=== PATIENT | male | born 1990 | race Caucasian/White ===

== ENCOUNTER 2023-11-01 22:02 | Emergency (ER) | payer MEDICAID, SELFPAY ==
[2023-11-01] VITALS (11 sets, daily range): BP systolic 144–152; BP diastolic 92–97; PULSE 72–80; TEMP 36.6; O2SAT 98–100; BMI 26.9
--- NOTE | 2023-11-01 22:28 | XR_ITS ---
The [address] [address] Patient Name: ALEX HOFFMAN MRN: [id number] date: 1990 Sex: M Assigned Patient Location: ER Current Patient Location: Accession/Order Number: [id number] Exam Date: 11/01/2023 22:45 Report Date: 11/02/2023 01:02 At the request of: GUERA VALE Procedure: XR chest 1V CXR HISTORY: Shortness of breath COMPARISON: None. TECHNIQUE: 1 view chest submitted for review. FINDINGS: Lungs are hyperexpanded with an infrahilar airspace opacity. The cardiac silhouette measures within normal. Pulmonary vascularity is unremarkable. Osseous structures do not demonstrate any acute abnormality. XR/XR chest 1V IMPRESSION: Infrahilar airspace opacity demonstrated. Please correlate for pneumonia versus atelectasis. Electronically authenticated by: HAYDE DUMAS Date: 11/02/2023 01:02
--- NOTE | 2023-11-01 22:28 | ECG_ITS ---
The [facility] Test Date: 2023-11-01 Pat Name: ALEX HOFFMAN Department: Room: - Gender: Male Sonography Technician: : 1990 Requested By: CHARO FRANCISCO Order Number: [id number] Reading MD: ALON TY Measurements Intervals [place] Rate: 76 P: 85 IA: 196 QRS: 88 QRSD: 94 T: 67 QT: 416 QTc: 446 Interpretive Statements 1100 Sinus rhythm [address] depression 9150 abnormal ECG No previous ECG available for comparison Electronically Signed On 11-03-2023 22:37:35 EDT by ALON TY
--- NOTE | 2023-11-01 22:29 | ED.CHESTPAI1 ---
HPI - Chest Pain General Chief Complaint: Chest Pain Stated Complaint: CHEST PAIN Time Seen by Provider: 11/01/23 22:22 History of Present Illness HPI narrative: patient presents complaining of sudden onset of pain substernal chest. Burning pain. Past history of cocaine use. States last used cocaine yesterday. No pleuritic symptoms or shortness of breath. States he was sweaty at home when the pain started. No associated abdominal pain or nausea denies history of heart disease in his family Related Data Home Medications ?Medication ?Instructions ?Recorded ?Confirmed No Known Home Medications 11/01/23 11/01/23 Allergies Allergy/AdvReac Type Severity Reaction Status Date / Time No Known Drug Allergies Allergy Verified 11/01/23 22:23 Review of Systems ROS Status of ROS 10 or more systems reviewed and unremarkable except as noted in history and below Exam Constitutional Vital Signs, click to edit/add: Last Vital Signs Temp 98 F 11/01/23 22:16 Pulse 80 11/01/23 22:16 Resp 20 11/01/23 22:16 BP 144/97 H 11/01/23 22:16 Pulse Ox 100 11/01/23 22:16 O2 Del Method Room Air 11/01/23 22:16 Common normals: oriented x3, no limitations, healthy appearing, alert and well nourished General appearance: in distress HENMT Common normals: normocephalic and head/scalp atraumatic Eye Common normals: EOMs intact bilaterally and conjunctivae normal Respiratory Common normals: normal respiratory effort, no retractions, no use of accessory muscles and clear to auscultation bilaterally Cardio Common normals: regular rate, regular rhythm, S1 normal heart sound and S2 normal heart sound GI Common normals: Normal to inspection, nondistended, normoactive bowel sounds present, soft to palpation and non-tender Extremity Common normals: normal to inspection and full ROM Neuro Common normals: oriented x3, CN's II-XII intact bilaterally, moves all extremities and no focal motor deficits Psych Appearance: grossly normal Course Vital Signs Vital signs: Vital Signs Temperature 98 F 11/01/23 22:16 Pulse Rate 80 11/01/23 22:16 Respiratory Rate 20 11/01/23 22:16 Blood Pressure 144/97 H 11/01/23 22:16 Pulse Oximetry 100 11/01/23 22:16 Oxygen Delivery Method Room Air 11/01/23 22:16 Temperature 98 F 11/01/23 22:16 Pulse Rate 80 11/01/23 22:16 Respiratory Rate 20 11/01/23 22:16 Blood Pressure 144/97 H 11/01/23 22:16 Pulse Oximetry 100 11/01/23 22:16 Oxygen Delivery Method Room Air 11/01/23 22:16 MDM - Chest Pain MDM Narrative Medical decision making narrative: patient presents with acute onset of chest pain and vomiting. chest wall nontender. Pain has improved but not resolved. first troponin neg. d-dimer neg. cxray report not back from radiology. Patient given GI cocktail. Now he wants to go. Informed of the plan for 3 hour follow up troponin for his heart. States he is not going to stay for any further testing and wants to leave now. will have him sign out AMA as he insist on leaving even though the workup is incomplete advised to follow up with his PCP DR Myers Lab Data Labs: Lab Results 11/01/23 11/01/23 Range/Units 22:41 22:49 WBC 17.3 H (4.0-11.0) 10^3/uL RBC 5.07 (4.70-6.10) 10^6/uL Hgb 16.4 (14.0-18.0) g/dL Hct 46.7 (42.0-54.0) % MCV 92.1 (80.0-94.0) fL MCH 32.3 (25.9-34.0) pg MCHC 35.1 (29.9-35.2) g/dL RDW 13.0 (11.0-15.0) % Plt Count 282 (150-450) 10^3/uL MPV 9.3 L (9.5-13.5) fL Neut % (Auto) 82.1 H (43.0-75.0) % Lymph % (Auto) 12.4 L (20.5-60.0) % [place] % (Auto) 4.8 (1.7-12.0) % Eos % (Auto) 0.1 L (0.9-7.0) % Baso % (Auto) 0.3 (0.2-2.0) % Neut # (Auto) 14.2 H (1.4-6.5) 10^3/uL Lymph # (Auto) 2.2 (1.2-3.8) 10^3/uL Providence # (Auto) 0.8 (0.3-0.8) 10^3/uL Eos # (Auto) 0.0 (0.0-0.7) 10^3/uL Baso # (Auto) 0.1 (0.0-0.1) 10^3/uL Abs Immat Gran (auto) 0.06 H (0.00-0.03) 10^3/uL Imm/Tot Granulo (auto) 0.3 (0.0-0.5) % D-Dimer 0.49 (<=0.59) mg/L FEU Sodium 137 (136-145) mmol/L Potassium 3.6 (3.5-5.1) mmol/L Chloride 98 (98-107) mmol/L Carbon Dioxide 21.1 (21.0-32.0) mmol/L Anion Gap 21.5 BUN 12.0 (7.0-18.0) mg/dL Creatinine 1.39 H (0.70-1.30) mg/dL Est GFR ( Amer) >60 (>=60) Est GFR (Non-Af Amer) 58 L (>=60) BUN/Creatinine Ratio 8.6 Glucose 127 H (74-106) mg/dL Calcium 9.7 (8.5-10.1) mg/dL Total Bilirubin 0.5 (0.2-1.0) mg/dL AST 25 (15-37) U/L ALT 37 (16-63) U/L Alkaline Phosphatase 83 (46-116) U/L Troponin I High Sens 65.7 (4.0-76.1) pg/mL Total Protein 8.5 H (6.4-8.2) g/dL Albumin 4.4 (3.4-5.0) g/dL Globulin 4.1 g/dL Albumin/Globulin Ratio 1.1 Lipase 32.0 (16.0-77.0) U/L Discharge Plan Discharge Stand Alone Forms: Portal Instructions Chief Complaint: Chest Pain Clinical Impression: Chest pain Patient Disposition: Left Against Medical Advice Prescriptions / Home Meds: No Action No Known Home Medications Print Language: Polish Referrals: Yoav Myers MD [Primary Care Provider] - 1 week
[2023-11-01] MEDS: ONDANSETRON PF 4 MG/2 ML VIAL IV (22:43)
[2023-11-01 22:46] LABS: Basophils Absolute Auto 0.1 10^3/uL (0.0-0.1); Basophils Percent Auto 0.3 % (0.2-2.0); Eosinophils Percent Auto 0.1 % (0.9-7.0); Hematocrit 46.7 % (42.0-54.0); Hemoglobin 16.4 g/dL (14.0-18.0); Immature Granulocytes Abs Auto 0.06 10^3/uL (0.00-0.03); Immature Granulocytes Pct Auto 0.3 % (0.0-0.5); Lymphocytes Absolute Auto 2.2 10^3/uL (1.2-3.8); Lymphocytes Percent Auto 12.4 % (20.5-60.0); Mean Corpuscular HGB Conc 35.1 g/dL (29.9-35.2); Mean Corpuscular Hemoglobin 32.3 pg (25.9-34.0); Mean Corpuscular Volume 92.1 fL (80.0-94.0); Mean Platelet Volume 9.3 fL (9.5-13.5); Monocytes Absolute Auto 0.8 10^3/uL (0.3-0.8); Monocytes Percent Auto 4.8 % (1.7-12.0); Neutrophils Absolute Auto 14.2 10^3/uL (1.4-6.5); Neutrophils Percent Auto 82.1 % (43.0-75.0); Platelet Count 282 10^3/uL (150-450); Red Blood Count 5.07 10^6/uL (4.70-6.10); White Blood Count 17.3 10^3/uL (4.0-11.0)
[2023-11-01 23:09] LABS: Alanine Aminotransferase 37 U/L (16-63); Albumin Globulin Ratio 1.1; Albumin Level 4.4 g/dL (3.4-5.0); Alkaline Phosphatase 83 U/L (46-116); Anion Gap 21.5; Aspartate Amino Transferase 25 U/L (15-37); BUN Creatinine Ratio 8.6; Bilirubin Total 0.5 mg/dL (0.2-1.0); Calcium 9.7 mg/dL (8.5-10.1); Carbon Dioxide 21.1 mmol/L (21.0-32.0); Chloride 98 mmol/L (98-107); Estimated GFR (African America >60 (>=60); Estimated GFR (Non-African Ame 58 (>=60); Globulin 4.1 g/dL; Glucose 127 mg/dL (74-106); Potassium 3.6 mmol/L (3.5-5.1); Sodium 137 mmol/L (136-145); Total Protein 8.5 g/dL (6.4-8.2); Troponin I High Sensitivity 65.7 pg/mL (4.0-76.1)
[2023-11-01 23:16] LABS: D Dimer 0.49 mg/L FEU (<=0.59)
[2023-11-01] MEDS: lidocaine HCL 15 ML, MAG HYDROX/ALUMINUM HYD/SIMETH 30 ML, HYOSCYAMINE SULFATE 0.25 MG PO (23:32)
== END 2023-11-01 23:43 | disposition left against medical advice (07) ==
PROVIDERS: Emergency Provider Internal Medicine; PCP Family Medicine
DX: R07.9 Chest pain, unspecified (principal); Z53.29 Procedure and treatment not carried out because of patient's decision for other reasons; Z87.898 Personal history of other specified conditions
CPT/HCPCS: 36415; 71045; 80053; 83690; 84484; 85025; 85378; 93005; 96374; 99285; J2405

== ENCOUNTER 2024-08-08 12:20 | Emergency (ER) | payer MEDICAID, SELFPAY ==
--- OUTSIDE RECORDS SUMMARY | 2023-08-22 11:40 | XMS_ITS ---
Author Organization [facility] Serv[facility] es Address [address] [place] [address] Care Team Providers Care Key Bed Installer Name Role Phone Justin Miramontes Primary Care Provider REASON FOR VISIT DENTAL EXAM Encounters Encounter Location Date Provider Diagnosis [address] [place] [address] 08/22/2023 Justin Miramontes Plan Of Treatment No Information Progress Notes * ALEX HOFFMANDOB: 9 (33 yo M)Acc No.[id number]:08/22/2023 Patient: ALEX BRANDT Provider: Deepti Miramontes DDS :1990 A ge:32 Y S ex:Male Date:08/22/2023 Address:[address] [place], [place] [id number] Subjective: * Chief Complaints: * 1 . DENTAL EXAM. * Medical History: Objective: * Vitals: Assessment: Plan: * Treatment: * Images: * Electronic signature of Jamie Miramontes DDS on 08/08/2024 at 12:23 PM EDT Sign off status: Pending * Provider: Deepti Miramontes DDS Date: 08/22/2023 Generated for Debra templeton/Breanne/eTransmitting on: 0 08/08/2024 12:23 PM EDT
--- OUTSIDE RECORDS SUMMARY | 2023-09-11 07:40 | XMS_ITS ---
Author Organization [facility] Serv[facility] es Address [address] [place] [address] Care Team Providers Care Medicare Sales Executive Name Role Phone Justin Miramontes Primary Care Provider [phone] REASON FOR VISIT EXAM Encounters Encounter Location Date Provider Diagnosis [address] [place] [address] 09/11/2023 Justin Miramontes Plan Of Treatment No Information Progress Notes * ALEX HOFFMANDOB: 9 (33 yo M)Acc No.[id number]:09/11/2023 Patient: ALEX BRANDT Provider: Deepti Miramontes DDS :1990 A ge:32 Y S ex:Male Date:09/11/2023 Address:[address] [place], [place] [id number] Subjective: * Chief Complaints: * 1 . EXAM. * Medical History: Objective: * Vitals: Assessment: Plan: * Treatment: * Images: * Electronic signature of Jamie Miramontes DDS on 08/08/2024 at 12:23 PM EDT Sign off status: Pending * Provider: Deepti Miramontes DDS Date: 09/11/2023 Generated for Debra templeton/Breanne/eTransmitting on: 08/08/2024 12:23 PM EDT
--- OUTSIDE RECORDS SUMMARY | 2023-10-02 05:50 | XMS_ITS ---
Author Organization [facility] Servic [facility] Address [address] [place] [address] Care Team Providers Care Stroke Coordinator Name Role Phone Justin Miramontes Primary Care Provider REASON FOR VISIT EXAM Encounters Encounter Location Date Provider Diagnosis [address] [place] [address] 10/02/2023 Justin Miramontes Plan Of Treatment No Information Progress Notes * ALEX HOFFMANDOB: 9 (33 yo M)Acc No.[id number]:10/02/2023 Patient: ALEX BRANDT Provider: Deepti Miramotnes DDS :1990 A ge:33 Y S ex:Male Date:10/02/2023 Address:[address] [place], [place] [id number] Subjective: * Chief Complaints: * 1 . EXAM. * Medical History: Objective: * Vitals: Assessment: Plan: * Treatment: * Images: * Electronic signature of Jamie Miramontes DDS on 08/08/2024 at 12:23 PM EDT Sign off status: Pending * Provider: Deepti Miramontes DDS Date: 10/02/2023 Generated for Debra templeton/Breanne/eTransmitting on: 08/08/2024 12:23 PM EDT
[2024-08-08 12:02] VITALS: BP 133/97; PULSE 94; TEMP 36.7; O2SAT 98; BMI 25.8
--- NOTE | 2024-08-08 12:18 | ED.GENADUL1 ---
HPI HPI - General Adult General Chief complaint: Psychiatric Symptoms Stated complaint: OTHER Time Seen by Provider: 08/08/24 12:45 Source: patient Mode of arrival: ambulance History of Present Illness HPI narrative: 33-year-old male presents to the emergency department by police because he states he said something stupid. He was laying in bed and was arguing with his girlfriend and he said he did did not want to live any longer. She called authorities and they brought him here. The patient states it was just something stupid that he said and that he did not mean it. He has no intention of harming himself in any fashion. He drank alcohol last night but none today and denies any street drug use other than marijuana. He has no physical complaints. Related Data Home Medications ?Medication ?Instructions ?Recorded ?Confirmed No Known Home Medications 11/01/23 11/01/23 Allergies Allergy/AdvReac Type Severity Reaction Status Date / Time No Known Drug Allergies Allergy Verified 11/01/23 22:23 Review of Systems ROS Narrative Nurses note and vital signs reviewed and patient is not hypoxic. General: The patient appears well and in no apparent distress. Patient is resting comfortably on cart. Skin: Warm, dry, no pallor noted. There is no rash noted. Head: Normocephalic, atraumatic. Birthmark present above his left eye. Eye: Normal conjunctiva, no drainage Ears, Nose, Mouth, and Throat: oral mucosa is moist. Nares patent. Cardiovascular: Regular Rate and Rhythm Respiratory: Patient is in no distress, no accessory muscle use, lungs are clear to auscultation, no wheezing, rales or rhonchi Back: non-tender GI: Soft and nontender Musculoskeletal: The patient has no evidence of calf tenderness, no pitting edema, symmetrical pulses noted bilaterally Neurological: A&O, normal speech Psychiatric: Cooperative Exam Constitutional Vital Signs, click to edit/add: Last Vital Signs Temp 98.0 F 08/08/24 12:02 Pulse 94 H 08/08/24 12:02 Resp 18 08/08/24 12:02 BP 133/97 H 08/08/24 12:02 Pulse Ox 98 08/08/24 12:02 O2 Del Method Room Air 08/08/24 12:02 Course Vital Signs Vital signs: Vital Signs Temperature 98.0 F 08/08/24 12:02 Pulse Rate 94 H 08/08/24 12:02 Respiratory Rate 18 08/08/24 12:02 Blood Pressure 133/97 H 08/08/24 12:02 Pulse Oximetry 98 08/08/24 12:02 Oxygen Delivery Method Room Air 08/08/24 12:02 Temperature 98.0 F 08/08/24 12:02 Pulse Rate 94 H 08/08/24 12:02 Respiratory Rate 18 08/08/24 12:02 Blood Pressure 133/97 H 08/08/24 12:02 Pulse Oximetry 98 08/08/24 12:02 Oxygen Delivery Method Room Air 08/08/24 12:02 Medical Decision Making MDM Narrative Medical decision making narrative: The patient states he is not suicidal whatsoever. He has been interviewed by mental health services and they have cleared him to be released. Differential Diagnosis Differential Diagnosis: Situational stress, suicidal ideation Discharge Plan Discharge Chief Complaint: Psychiatric Symptoms Clinical Impression: Situational stress Patient Disposition: Home, Self-Care Time of Disposition Decision: 12:46 Condition: Good Mode of Transportation: Private Vehicle Prescriptions / Home Meds: No Action No Known Home Medications Print Language: Turkmen Instructions: Stress (ED) Referrals: Yoav Myers MD [Primary Care Provider, Family Practice] - 1 week
--- OUTSIDE RECORDS SUMMARY | 2024-08-08 12:23 | XMS_ITS | Clinical Summary ---
Author Organization [facility] Address [address] [place] [address] Care Team Providers Care Hvac Tech Name Role Phone Yoav Myers MD Primary Care Provider [phone] Allergies No known active allergies Medications ondansetron (ZOFRAN ODT) 4 MG disintegrating tablet Take 1 tablet by mouth every 6 hours as needed for Nausea or Vomiting 30 tablet 0 5 Active Immunizations Immunization Administration Dates Next Due TDaP, ADACEL (age 10y-64y), BOOSTRIX (age 10y+), IM, 0.5mL 12/02/2013 Social History Tobacco Use Types Packs/Day Years Used Date Smoking Tobacco: Every Day Cigarettes Alcohol Use Standard Drinks/Week Comments Yes 0 (1 standard drink = 0.6 oz pur e alcohol) occasional Sex and Gender Information Value Date Recorded Sex Assigned at Not on file Legal Sex Male 7:38 PM EST Gender Identity Not on file Sexual Orientation Not on file Last Filed Vital Signs Vital Sign Reading Time Taken Comments Blood Pressure 142/82 11/15/2014 4:42 PM EDT Pulse 81 11/15/2014 4:42 PM EDT Temperature 37.1 C (98.7 F) 11/15/2014 4:42 PM EDT Respiratory Rate 17 11/15/2014 4:42 PM EDT Oxygen Saturation 96% 11/15/2014 4:42 PM EDT Inhaled Oxygen Concentration - - Weight 68 kg (150 lb) 12/02/2013 1:55 AM EDT Height 180.3 cm (5' 11 ) 12/02/2013 1:55 AM EDT Body Mass Index 20.92 12/02/2013 1:55 AM EDT Plan of Treatment Not on file Care Teams Hvac Tech Relationship Specialty Start Date End Date Yoav Myers MD [address] [place] [address] PCP - General 03/16/12
--- OUTSIDE RECORDS SUMMARY | 2024-08-08 12:23 | XMS_ITS | CCD ---
Author Organization [facility] Care Team Providers Care Poultry Process Worker Name Role Phone ELIE GONG Attending Unavailable Unavailable Primary Care Provider Unavailabl e Medications Current Medications Medication Drug Class(es) Dates Sig (Normalized) Sig (Original) ondansetron 8 mg oral tablet (1 source) Serotonin-3 Receptor Antagonist Start: 10-28-2023 take 8 mg by mouth every eight hours Ondansetron Hcl Active 8 MG PO Q8H 30 08October 28, 2023 12:00am Problems Problem Classification Problem Date Documented Da te Episodic/Chronic Administrative/social admission (2 sources) Patient encounter status; Translations: [Encounter for pre-employment examination] 10-02-2023 Episodic Vital Signs Date Time Vital Sign Value Performing Clinician Facility 10-28-2023 17:38-0400 Body height 180.34 cm [facility] 10-28-2023 17:38-0400 Body mass index (BMI) [Ratio] 26.9 kg/m2 [facility] 10-28-2023 17:38-0400 Body temperature 97.7 [degF] [facility] 10-28-2023 17:38-0400 Body weight 87.6 kg [facility] 10-28-2023 17:38-0400 Diastolic blood pressure 75 mm[Hg] [facility] 10-28-2023 17:38-0400 Heart rate 87 /min [facility] 10-28-2023 17:38-0400 Respiratory rate 16 /min [facility] 10-28-2023 17:38-0400 SaO2% (BldA) [Mass fraction] 96 % [facility] 10-28-2023 17:38-0400 Systolic blood pressure 121 mm[Hg] [facility] 10-02-2023 11:43-0400 Body height 180.3 cm Elie oGng DO Work Phone: [facility] 10-02-2023 11:43-0400 Body mass index (BMI) [Ratio] 27.39 kg/m2 Elie Gong DO Work Phone: [facility] 10-02-2023 11:43-0400 Body temperature 97.5 [degF] Elie Gong DO Work Phone: [facility] 10-02-2023 11:43-0400 Body weight 89.09 kg Elie Gong DO Work Phone: [facility] 10-02-2023 11:43-0400 Diastolic blood pressure 82 mm[Hg] Elie Gong DO Work Phone: [facility] 10-02-2023 11:43-0400 Heart rate 84 /min Elie Gong DO Work Phone: [facility] 10-02-2023 11:43-0400 SaO2% (BldA) [Mass fraction] 99 % Elie Gong DO Work Phone: [facility] 10-02-2023 11:43-0400 Systolic blood pressure 130 mm[Hg] Elie Gong DO Work Phone: [facility] Healthcare Encounters Encounter Date Encounter Type Care Provider Facility Start: 10-28-2023 End: 10-28-2023 ambulatory [facility] Work Phone: Start: 10-28-2023 End: 10-28-2023 Patient encounter procedure [facility] Work Phone: Start: 10-02-2023 End: 10-02-2023 ambulatory ELIE GONG Not Available Start: 10-02-2023 End: 10-02-2023 Patient encounter procedure Elie Gong DO Work Phone: [facility] Comment on above: Encounter for pre-em ployment examination (Primary Dx) Payers Date Payer Category Payer Policy ID Unknown [id number] Social History Date Type Detail Facility [facility] Work Phone: Start: 1990 Sex Assigned At Male F [facility] Start: 10-02-2023 [facility] History of tobacco use Cigarette Smoker [facility] Start: 10-02-2023 Tobacco use and exposure Smokeless tobacco non-user [facility] Start: 10-02-2023 Alcoholic beverage intake Lifetime non-drinker (finding) [facility] Start: 1990 Sex assigned at Not on file [facility] Gender identity Not on file [facility] History of Present illness Narrative 10-02-2023 Steffi Mitchell MA - 10/02/2023 11:30 AM EDT Note Date & Type Note Facility 10-02-2023 History of Presen t illness Narrative Pt presents today for a pre-employment drug screen, Physical Exam, and Audiogram for [employer]. Pt verified by photo ID. Examination General Examination: General Examination: in no acute distress, well developed, well nourished. HEAD: normocephalic atraumatic. Eyes: extraocular movement intact (EOMI) fundus normal pupils equal, round, reactive to light. EARS: auditory canal clear tympanic membrane intact, clear. NOSE: no lesions nares patent. ORAL CAVITY: no lesions mucosa moist. Throat: clear. NECK/THYROID: neck supple, full range of motion. LYMPH NODES: no cervical adenopathy. SKIN: No rashes HEART: no murmurs, regular rate and rhythm, S1, S2 normal. LUNGS: clear to auscultation bilaterally. ABDOMEN: soft, non tender, non distended no hepatosplenomegaly no masses palpable. MUSCULOSKELETAL: normal. EXTREMITIES: no clubbing, cyanosis, or edema. PERIPHERAL PULSES: normal. NEUROLOGIC: nonfocal cranial nerves 2-12 grossly intact. PSYCH: alert, oriented cognitive function intact cooperative with exam. Hernia check performed 50 lb lift performed HPI and documentation approved and amended as necessary by Dr. Elie Gong. Transcribed by Liana liriano LPN-IV 1. Encounter for pre-employment examination PMHx reviewed with patient in detail. Recommend wearing corrective lenses at work. PE form completed. Patient medically cleared for employment with [employer] documented in this encounter [facility] Instructions 10-02-2023 Patient Instructions Note Date & Type Note Facility 10-02-2023 Instructions Liana Urban RN - 10/02/2023 11:30 AM EDT See progress noted documented in this encounter [facility] Evaluation note Note Date & Type Note Facility Evaluation note [facility]: Evaluation note Note Date & Type Note Facility Evaluation note Diagnosis Encounter for pre-employment examination- Primary documented in this encounter [facility] Summary Purpose Family History No Family History Records Found Advance Directives Advance Directive Response Recorded Date/ Time Advance Directives No October 5:16pm Chief Complaint and Reason for Visit Chief Complaint Nausea soft stool li ght headed Additional Source Comments (unrecognized sect ion and content) No Status Records Found INFORMATION SOURCE (unrecogn ized section and content) DATE CREATED AUTHOR 10/04/2023 [facility] Care Teams (unrecognized sec tion and content) Team Status: Active Member Role Status Dates NON STAFF Primary Care Provider Active Team Status: Inactive Member Role Status Dates Anette Hilton APRN Attending Provider Active Start: October 28, 2023 End: October 28, 2023 NON STAFF Primary Care Provider Active Start: October 28, 2023 End: October 28, 2023 Goals (unrecognized section and content) Goals may be documented in a n alternate section Reason for Visit (unrecogniz ed section and content) Reason Comments Encounter for Drug Screening FOR RECORDS PERTAINING TO PATIENTS WHO ARE OR HAVE BEEN ENROLLED IN A CHEMICAL DEPENDENCY/SUBSTANCEABUSE PROGRAM, SOME INFORMATION MAY BE OMITTED. This clinical summary was aggregated from multiple sources. Caution should be exercised in using it in the provision of clinical care. This summary normalizes information from multiple sources, and as a consequence, information in this document may materially change the coding, format and clinical context of patient data. In addition, data may be omitted in some cases. CLINICAL DECISIONS SHOULD BE BASED ON THE PRIMARY CLINICAL RECORDS. [facility]. provides no warranty or guarantee of the accuracy or completeness of information in this document.
--- OUTSIDE RECORDS SUMMARY | 2024-08-08 12:23 | XMS_ITS | Patient Health Record ---
Author Organization [facility] Address [address] [place] [address] Care Team Providers Care Auto Damage Adjuster Name Role Phone KinseyAma ingramnicolle Primary Care Provider [phone] Reason For Referral No Information Plan Of Treatment No Information Insurance Providers Payer Name Payer Address Payer Phone Subscriber Number Group Number Insured Name Patient Relationship to Insured Coverage Start Date Coverage End Date [employer] DQ [address] [address] [place] [address] [id number] ALEX HOFFMAN Self - patient is the insured 4
== END 2024-08-08 12:57 | disposition home or self-care (01) ==
PROVIDERS: Emergency Provider Emergency Medicine; PCP Family Medicine
DX: F43.9 Reaction to severe stress, unspecified (principal)
CPT/HCPCS: 99283